=== PATIENT | male | born 2000 | race African-American/Black ===

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

== ENCOUNTER 2023-02-18 20:53 | Emergency (ER) | payer OTHER, SELFPAY ==
[2023-02-18 20:55] VITALS: BP 139/53; PULSE 60; RESP 15; TEMP 36.8; O2SAT 100
--- NOTE | 2023-02-18 21:21 | ED.EYEPROB ---
HPI - Eye Problem General Chief complaint: Eye Problems Stated complaint: eye pain Time Seen by Provider: 02/18/23 21:04 Source: patient and family Mode of arrival: ambulatory Limitations: no limitations History of Present Illness HPI Narrative: patient is a 22-year-old male without any past medical history presents emergency department today with his parents for evaluation of pain to the left eye with swelling and redness. patient states that he noticed it a few days ago. Mild itching. No drainage. He denies any vision changes. Denies any exposure to pinkeye recently. Denies any foreign body sensation or any foreign body injury to the eye. denies fever or chills. Related Data Allergies Allergy/AdvReac Type Severity Reaction Status Date / Time No Known Allergies Allergy Verified 08/30/20 20:31 Review of Systems Review of Systems: CONSTITUTIONAL: Denies fever, chills, or sweats. EYES: +left upper eye swelling/pain to inner corner. redness/itching. Denies visual changes. ENT: Denies rhinorrhea, congestion, sore throat, or otalgia. SKIN: Denies rash or itching. MUSCULOSKELETAL: Denies back pain, joint pain, or myalgia. NEUROLOGIC: Denies headache, numbness, or weakness. PSYCHIATRIC: Denies anxiety or depression. All systems reviewed & are unremarkable except as noted in HPI and below PMFSH Past Medical History Medical History No active medical problems Social History Social History Substance use: never Gender identity (if verbalized by the patient): Male Sexual Orientation (if Verbalized by the Patient): Straight or Heterosexual Exam Narrative: GENERAL: Well-appearing, well-nourished, and in no acute distress. HEAD: Normocephalic, atraumatic. EYES: stye noted to left upper inner eyelid with upper eyelid swelling/redness. there is mild conjunctival injection/erythema. no drainage. no signs of periorbital cellulitis. vision intact. PERRLA and EOMI. ENT: Nares clear, no rhinorrhea or epistaxis. Mucous membranes moist. NECK: Supple. CHEST: respirations regular and non-labored. HEART: Regular rate SKIN: Warm, dry, no rash. NEURO: No focal deficits. Alert and oriented x3. CN II-XII grossly intact PSYCH: Normal mood and affect. Course Vital Signs Vital signs: Vital Signs Temperature 98.2 F 02/18/23 20:55 Pulse Rate 60 02/18/23 20:55 Respiratory Rate 15 02/18/23 20:55 Blood Pressure 139/53 L 02/18/23 20:55 Pulse Oximetry 100 02/18/23 20:55 Oxygen Delivery Room Air 02/18/23 20:55 Temperature 98.2 F 02/18/23 20:55 Pulse Rate 60 02/18/23 20:55 Respiratory Rate 15 02/18/23 20:55 Blood Pressure 139/53 L 02/18/23 20:55 Pulse Oximetry 100 02/18/23 20:55 Oxygen Delivery Room Air 02/18/23 20:55 MDM - Eye Problem MDM Narrative Medical decision making narrative: presents for left eye redness/ pain to the upper eyelid as well as mild itching and redness. Findings consistent with a stye as well as mild conjunctivitis. No signs of foreign body. He had no history of foreign body injury. Vision is intact. Discussed supportive measures her symptoms as well as the antibiotic eyedrops. Patient is nontoxic in appearance. Stable re-evaluation exam just before discharge. Patient in no acute distress. Vitals within normal limits. Discussed return precautions with the patient including all the red flag signs or symptoms of when to return the patient. The patient verbalized understanding and was agreeable with discharge and close follow-up Differential Diagnosis Differential diagnosis: Likely corneal abrasion, conjunctivitis and periorbital cellulitis Discharge Plan Discharge Clinical Impression: Hordeolum internum left upper eyelid Acute conjunctivitis of left eye Qualifiers: Acute conjunctivitis type: unspecified Qualified Code(s): H10.32 - Unspecified ac
== END 2023-02-18 21:52 | disposition home or self-care (01) ==
PROVIDERS: Emergency Provider Nurse Practitioner; PCP Nurse Practitioner Family
DX: H00.024 Hordeolum internum left upper eyelid (principal); H10.32 Unspecified acute conjunctivitis, left eye
CPT/HCPCS: 99283